=== PATIENT | female | born 1990 | race Caucasian/White ===

== ENCOUNTER 2021-10-04 08:53 | Emergency (ER) | payer OTHER ==
[2021-10-04 10:17] LABS: RED BLOOD COUNT 4.73 M/UL (4.00-5.10); WHITE BLOOD COUNT 15.5 K/UL (4.5-11.0)
[2021-10-04 10:35] LABS: BUN/CREATININE RATIO 15 (0-10)
== END 2021-10-05 03:17 | disposition short-term general hospital (02) ==
LOC: ER1 08:53
PROVIDERS: Physician Assistant
DX: N13.6 Pyonephrosis (principal); F17.210 Nicotine dependence, cigarettes, uncomplicated; Z87.442 Personal history of urinary calculi; Z91.040 Latex allergy status
CPT/HCPCS: 51701; 80053; 81001; 83605; 84703; 85025; 87040; 87077; 87086; 87186; 96374; 96375; 96376; 99285; J0696; J1885; J2270; J2550